=== PATIENT | male | born 1995 ===

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

== ENCOUNTER 2017-05-01 07:46 | Day surgery (SDC) | payer OTHER ==
[2017-05-01] MEDS ORDERED: Propofol 10 mg/ml Inj (20 ML) ONE (10:02)
[2017-05-01] MEDS ORDERED: Midazolam 2 MG/2 ML VIAL ONE (10:02)
[2017-05-01] MEDS ORDERED: Lactated Ringer's 1,000 ML IV ONE ×2 (10:10→11:40)
[2017-05-01] MEDS ORDERED: ceFAZolin IV 1 gm in Dextrose 1 GM/50 ML BAG IVPB ONE (10:12)
[2017-05-01] MEDS ORDERED: HYDROmorphone 0.5 mg/0.5 ml ISec IVP PRN (11:13)
--- NOTE | 2017-05-01 11:30 | PCM.SURG1 ---
Surgeon's Initial Post Op Note - Surgeon's Notes Surgeon: Dr. Darden Laborer Drying Department: none Type of Anesthesia: General Endo Pre-Operative Diagnosis: Right buttock pilonidal cyst Operative Findings: Right buttock pilonidal cyst Post-Operative Diagnosis: Right buttock pilonidal cyst Operation Performed: Excision of Right buttock pilonidal cyst Specimen/Specimens Removed: pilonidal cyst Estimated Blood Loss: EBL {In ML}: 10 Blood Products Given: N/A Drains Used: No Drains Post-Op Condition: Good Date of Surgery/Procedure: 05/01/17 Time of Surgery/Procedure: 10:00
[2017-05-01 12:39] VITALS: RESP 16
[2017-05-01 16:23] VITALS: BP 120/72; PULSE 64; TEMP 97.8; O2SAT 100
--- NOTE | 2017-05-03 01:12 | OP ---
PROCEDURE DATE: 05/01/2017 SURGEON: Andres Darden MD ANESTHESIA: General, Dr. Cook. PREOPERATIVE DIAGNOSIS: Pilonidal abscess, right buttock. POSTOPERATIVE DIAGNOSIS: Pilonidal abscess, right buttock. PROCEDURE: Excision of pilonidal abscess, right buttock. DESCRIPTION OF OPERATION: The patient was anesthetized and placed on the operating table in a prone position with the buttocks taped slightly apart. 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 An elliptical incision was made including the affected skin and inflamed subcutaneous tissue which included a chronic abscess cavity was excised down to the underlying muscle and removed along with the ellipse of overlying skin. The surrounding tissue was cauterized for hemostasis and closure was performed in 2 layers with interrupted suture of 3-0 Vicryl to approximate the subcutaneous tissue followed by 4-0 Monocryl subcuticular running suture and Steri-Strips. Dry sterile dressing was applied. The patient tolerated the procedure well and transferred to recovery room in stable condition. Estimated blood loss for the procedure was 10 mL. Andres Darden MD
== END 2017-05-01 16:29 | disposition home or self-care (01) ==
LOC: C.SDS 07:46
PROVIDERS: ATTEND Specialist
DX: L02.31 Cutaneous abscess of buttock (principal)
CPT/HCPCS: 10080; 88304; J0690; J1170; J2250; J2405; J2704; J3010; J7120

== ENCOUNTER 2018-01-13 00:54 | Emergency (ER) | payer OTHER ==
[2018-01-13 01:07] VITALS: TEMP 98.3; O2SAT 98
[2018-01-13] MEDS ORDERED: Lidocaine 2% Inj (20ml) INFIL STA (01:37)
[2018-01-13] MEDS ORDERED: Lidocaine 2% MPF (5 ml) Inj ONE (01:54)
--- NOTE | 2018-01-13 02:15 | C.PDOC ---
History Of Present Illness 22 year old male presents to the ED c/o pain to the sacral area associated with a painful lump. Patient reports having similar lesion in the past. Patient went to see his PMD today Dr. Maxi Varela who advised the patient to come to the ED. Patient denies fever, chills, nausea, vomit, periredctal tenderness. Time Seen by Provider: 01/13/18 01:35 Chief Complaint (Nursing): Abnormal Skin Integrity History Per: Patient History/Exam Limitations: no limitations Onset/Duration Of Symptoms: Days Current Symptoms Are (Timing): Still Present Location Of Injury: Left: Buttock Quality Of Symptoms: Painful, Swollen Recent travel outside of the [place]: No Additional History Per: Patient Past Medical History Reviewed: Historical Data, Nursing Documentation, Vital Signs Vital Signs: Last Vital Signs Temp 98.3 F 01/13/18 01:01 Pulse 80 01/13/18 02:33 Resp 14 01/13/18 02:33 BP 110/60 01/13/18 02:33 Pulse Ox 98 01/13/18 02:34 - Medical History PMH: No Chronic Diseases Denies: Chronic Kidney Disease Surgical History: No Surg Hx Family History: States: Unknown Family Hx - Social History Hx Alcohol Use: No Hx Substance Use: No - Immunization History Hx Tetanus Toxoid Vaccination: No Hx Influenza Vaccination: No Hx Pneumococcal Vaccination: No Review Of Systems Constitutional: Negative for: Fever, Chills Cardiovascular: Negative for: Chest Pain, Palpitations Respiratory: Negative for: Cough, Shortness of Breath Gastrointestinal: Negative for: Nausea, Vomiting Musculoskeletal: Positive for: Other Skin: Positive for: Other (abscess) Physical Exam - Physical Exam Appears: Non-toxic, No Acute Distress, Other (uncooperetive, thinks he was going to be admitted.) Skin: Normal Color, Warm, Dry Head: Atraumatic, Normacephalic Eye(s): bilateral: Normal Inspection Oral Mucosa: Moist Neck: Normal ROM, Supple Chest: Symmetrical Cardiovascular: Rhythm Regular Respiratory: Normal Breath Sounds, No Rales, No Rhonchi, No Wheezing Gastrointestinal/Abdominal: Soft, No Tenderness, No Guarding, No Rebound Back: Other (3 cm erythematous tender mass over upper margin of left buttock area of the coccyx) Extremity: Normal ROM, No Tenderness, No Swelling Neurological/Psych: Oriented x3, Normal Speech Gait: Steady ED Course And Treatment O2 Sat by Pulse Oximetry: 98 (On RA) Pulse Ox Interpretation: Normal - Incision & Drainage Of Abscess Anesthesia: Lidocaine 2% (8cc) Used During Procedure: Continuous Pulse Oximetry Prep Used: Sterile Water, Betadine Procedure: Incised W/Scalpel Blade#: (11), Drained Pus (10-15cc), Irrigated Cavity W/Saline, Probed To Break Up Loculations, Packed W/Gauze (10 inches of 0.25inch ), Cultures Obtained And Sent To Lab Medical Decision Making Medical Decision Making: Impression: abscess Plan: * I&D * Patient will follow up with PMD or ED in 2 days for wound check Spoke with Dr. German who agress that patient does not need admission for I&D at this time. Disposition - Disposition Referrals: [facility] [Outside] Disposition: HOME/ ROUTINE Disposition Time: 02:36 Condition: GOOD Additional Instructions: get packing removed in 2 days Prescriptions: Sulfamethoxazole/Trimethoprim [Bactrim Ds Tablet] 1 each PO BID #10 tablet Instructions: Abscess Incision and Drainage Forms: [employer] [facility] [employer] (Uzbek), Work Excuse Print Language: KISWAHILI - Clinical Impression Clinical Impression: Pilonidal abscess - Scribe Statement The provider has reviewed the documentation as recorded by the Scribe Kevin Longoria All medical record entries made by the Scribe were at my direction and personally dictated by me. I have reviewed the chart and agree that the record accurately reflects my personal performance of the history, physical exam, medical decision making, and the department course for this patient. I have also personally directed, reviewed, and agree with the discharge instructions and disposition.
[2018-01-13] MEDS ORDERED: Tmp-Smz 800 mg-160 mg DS Tab PO STA (02:19)
[2018-01-13] MEDS ORDERED: Tmp-Smz 800 mg-160 mg DS Tab ONE (02:28)
[2018-01-13 02:35] VITALS: BP 110/60; PULSE 80; RESP 14
== END 2018-01-13 02:34 | disposition home or self-care (01) ==
LOC: C.ER 00:54
DX: L05.01 Pilonidal cyst with abscess (principal)

== ENCOUNTER 2018-01-15 12:55 | Emergency (ER) | payer OTHER ==
[2018-01-15 13:04] VITALS: BP 123/80; PULSE 95; RESP 18; TEMP 98.6; O2SAT 98
[2018-01-15] MEDS ORDERED: Naproxen 550 mg Tab PO STA (13:35)
--- NOTE | 2018-01-15 13:38 | C.PDOC ---
History Of Present Illness 22yo male here for wound check and packing removal s/p an incision and drainage on 01/13 of a right upper gluteal abscess. He has been taking bactrim as prescribed and states his pain has been improving. Otherwise, he denies any new fever, chills, discharge from wound. Time Seen by Provider: 01/15/18 13:20 Chief Complaint (Nursing): Wound Check History Per: Patient History/Exam Limitations: no limitations Current Symptoms Are (Timing): Still Present Location Of Injury: Right: Buttock Quality Of Symptoms: denies: Painful, Itching, Swollen, Draining Additional History Per: Patient Past Medical History Reviewed: Historical Data, Nursing Documentation, Vital Signs Vital Signs: Last Vital Signs Temp 98.6 F 01/15/18 13:01 Pulse 95 H 01/15/18 13:01 Resp 18 01/15/18 13:01 BP 123/80 01/15/18 13:01 Pulse Ox 98 01/15/18 13:37 - Medical History PMH: No Chronic Diseases Denies: Chronic Kidney Disease Surgical History: No Surg Hx Family History: States: Unknown Family Hx - Social History Hx Alcohol Use: No Hx Substance Use: No - Immunization History Hx Tetanus Toxoid Vaccination: No Hx Influenza Vaccination: No Hx Pneumococcal Vaccination: No Review Of Systems Constitutional: Negative for: Fever, Chills Skin: Positive for: Other (I&D site to right upper gluteal area) Physical Exam - Physical Exam Appears: Non-toxic, No Acute Distress Skin: Warm, Dry, Other (right upper gluteal area with packing in place. mildly tender and erythematous. no streaking, fluctuance, induration or signs of cellulitis noted) Eye(s): bilateral: Normal Inspection Neck: Supple Chest: Symmetrical Cardiovascular: Rhythm Regular Respiratory: Normal Breath Sounds Extremity: Left: Normal Color And Temperature Neurological/Psych: Oriented x3 ED Course And Treatment O2 Sat by Pulse Oximetry: 98 (RA) Pulse Ox Interpretation: Normal Progress Note: Packing removed from wound and no purulent discharge expressed. No indication for re-packing the wound. Wound cleaned and dressed with sterile dressing. Patient instructed to finish his antibiotic course and given rx of Naproxen to take as needed for pain relief. Disposition Counseled Patient/Family Regarding: Diagnosis, Need For Followup, Rx Given - Disposition Referrals: [facility] [Outside] Disposition: HOME/ ROUTINE Disposition Time: 13:40 Condition: STABLE Additional Instructions: FOLLOW UP WITH YOUR DOCTOR/CLINIC IN 1-2 DAYS CONTINUE ANTIBIOTICS UNTIL FINISHED USE PAIN MEDICATION NEEDED RETURN TO ER IF SYMPTOMS WORSEN Prescriptions: Naproxen 375 mg PO BID PRN #20 tablet PRN Reason: pain Instructions: Wound Care (DC) Forms: [employer] (German) Print Language: MALTESE - Clinical Impression Clinical Impression: Wound check, abscess, Abscess packing removal - Scribe Statement The provider has reviewed the documentation as recorded by the Demetris Quintero Provider Attestation: All medical record entries made by the Demetris were at my direction and personally dictated by me. I have reviewed the chart and agree that the record accurately reflects my personal performance of the history, physical exam, medical decision making, and the department course for this patient. I have also personally directed, reviewed, and agree with the discharge instructions and disposition.
== END 2018-01-15 13:56 | disposition home or self-care (01) ==
LOC: C.ER 12:55
DX: Z48.01 Encounter for change or removal of surgical wound dressing (principal)

== ENCOUNTER 2018-10-03 10:32 | Outpatient (CLI) | payer OTHER | END 2018-10-03 10:33 | disposition home or self-care (01) | LOC: C.PAT 10:32 | DX: K60.3 Anal fistula (principal) ==

== ENCOUNTER 2018-10-04 11:30 | Observation (INO) | payer OTHER ==
[2018-09-30 09:16] VITALS: BMI 32.3
[2018-10-04] MEDS ORDERED: ceFAZolin 1 gm in NS 2 GM/200 ML BAG IVPB ONE (13:17)
[2018-10-04] MEDS ORDERED: Bupivacaine-Epi 0.5%-1:200,000 PF Inj ONE (13:17)
[2018-10-04] MEDS ORDERED: Midazolam 2 MG/2 ML VIAL ONE (13:31)
[2018-10-04] MEDS ORDERED: Propofol 10 mg/ml Inj (20 ML) ONE ×2 (13:31→17:47)
--- NOTE | 2018-10-04 14:59 | PCM.SURG1 ---
Surgeon's Initial Post Op Note - Surgeon's Notes Surgeon: Dr. Darden Applications Support Specialist: Dr. Garzon PGY4 Type of Anesthesia: General Endo Pre-Operative Diagnosis: Anal fistula Operative Findings: same Post-Operative Diagnosis: same Operation Performed: Anal Fistulectomy Specimen/Specimens Removed: none Estimated Blood Loss: EBL {In ML}: 10 Drains Used: No Drains Post-Op Condition: Good Date of Surgery/Procedure: 10/04/18 Time of Surgery/Procedure: 14:59
[2018-10-04] MEDS: HYDROmorphone 0.5 mg/0.5 ml ISec IVP PRN ×2 (15:05→15:35)
[2018-10-04] MEDS ORDERED: HYDROmorphone 0.5 mg/0.5 ml ISec IVP PRN ×2 (17:40→18:14)
[2018-10-04 19:42] VITALS: RESP 20
--- NOTE | 2018-10-05 04:44 | OP ---
PROCEDURE DATE: 10/04/2018 SURGEON: Andres Darden MD COIL CUTTER: Karen Garzon DO, PGY-4 ANESTHESIA: General. PREOPERATIVE DIAGNOSIS: Fistula in ano. POSTOPERATIVE DIAGNOSIS: Fistula in ano. PROCEDURE: Anal fistulectomy. INDICATIONS FOR PROCEDURE: This is a 23-year-old male who developed fistula in ano after previous excision of pilonidal cyst. DESCRIPTION OF PROCEDURE: The patient was brought to the operating room, and general anesthesia was induced. The patient was then positioned in the lithotomy position. A time-out was completed verifying correct patient, procedure, site positioning and special equipment prior to the beginning of the procedure. The perineum was prepped and draped in the usual sterile fashion. The external opening of the fistula was identified. Upon manual pressure, there was purulent drainage expressed from the fistula external opening. The anal crypts were then explored until the internal opening of the fistula was identified with a probe. The tract was then cannulated from the external opening, and a grooved guide passed through into the internal opening with care and without resistance. Electrocautery was then used to divide the overlying soft tissues. Hemostasis was achieved using electrocautery. A piece of Surgicel and a gauze pad were stuck between the buttocks. The patient tolerated the procedure well and was extubated and taken to the postanesthesia care unit in stable condition. Karen Garzon DO Andres Darden MD CHRISTIAN
--- NOTE | 2018-10-05 07:52 | CP.PCM.PN ---
Subjective - Date & Time of Evaluation Date of Evaluation: 10/05/18 Time of Evaluation: 07:48 - Subjective Subjective: [facility] Surgery - DR. Darden Pt S&E. Post -op patient had some bleeding at the surgical wound which was addressed in PACU with suturing of small bleeding vessel. He was admitted overnight for observation to ensure no further bleeding. Pt seen and examined this morning. He has mild pain at the area but has not required any pain me dications. Dressing is still clean and dry over the site. No fever/chills, nausea/vomiting, sob/ or chest pain. Objective - Vital Signs/Intake and Output Vital Signs (last 24 hours): Temp Pulse Resp BP Pulse Ox 97.9 F 84 20 100/62 97 10/05/18 00:08 10/05/18 00:08 10/05/18 00:08 10/05/18 00:08 10/05/18 04:25 - Medications Medications: Current Medications Acetaminophen (Tylenol 325mg Tab) 650 mg PO Q6 PRN PRN Reason: Pain, Mild (1-3) Hydromorphone HCl (Dilaudid) 0.5 mg IVP Q3H PRN PRN Reason: Pain, severe (8-10) Last Admin: 10/04/18 20:16 Dose: 0.5 mg Ondansetron HCl (Zofran Inj) 4 mg IVP Q6 PRN PRN Reason: Nausea/Vomiting Tramadol HCl (Ultram) 50 mg PO TID PRN PRN Reason: Pain, moderate (4-7) - Constitutional Appears: No Acute Distress - Head Exam Head Exam: ATRAUMATIC, NORMOCEPHALIC - Eye Exam Eye Exam: Normal appearance - Respiratory Exam Respiratory Exam: NORMAL BREATHING PATTERN. absent: Respiratory Distress - Cardiovascular Exam Cardiovascular Exam: REGULAR RHYTHM - Rectal Exam Additional comments: dresing over perianal region C/D/I - Neurological Exam Neurological Exam: Alert, Oriented x3 - Psychiatric Exam Psychiatric exam: Normal Affect, Normal Mood - Skin Skin Exam: Dry, Intact Assessment and Plan - Assessment and Plan (Free Text) Assessment: 23 yo M s/p anal fistulectomy POD 1 -Discharge home -Post op care discussed with patient and instructions given -Pt should make appointment with Dr. Darden in 1 week -Dressing can be removed when Bowel movement -Continue sitz baths at home, Tylenol/Motrin for pain as needed DW Dr. Adelso Garzon PGY4
[2018-10-05 08:05] VITALS: BP 102/63; PULSE 95; TEMP 98.1; O2SAT 96
== END 2018-10-05 15:05 | disposition home or self-care (01) ==
LOC: C.SDS 11:30 → C.9E 17:15 → C.6T 18:49
PROVIDERS: ADMIT Specialist; ATTEND Specialist
DX: K60.3 Anal fistula (principal)
CPT/HCPCS: 46288; G0378; J0690; J1170; J2001; J2250; J2704; J3010